=== PATIENT | female | born 1950 | race Caucasian/White ===

== ENCOUNTER → 2024-02-08 07:48 | Outpatient (REF) | payer OTHER, SELFPAY | LOC: RAD 07:48 | PROVIDERS: ATTENDING PHYSICIAN Internal Medicine; OTHER PHYSICIAN Specialist; REFERRING PHYSICIAN Internal Medicine Cardiovascular Disease | DX: R10.11 Right upper quadrant pain (principal) | CPT/HCPCS: 76700 ==

== ENCOUNTER → 2024-05-01 13:51 | Outpatient (REF) | payer OTHER, SELFPAY | LOC: RAD 13:51 | PROVIDERS: ATTENDING PHYSICIAN Nurse Practitioner | DX: M81.0 Age-related osteoporosis without current pathological fracture (principal) | CPT/HCPCS: 77080 ==

== ENCOUNTER 2024-05-10 12:53 | Emergency (ER) | payer OTHER, SELFPAY ==
[2024-05-10 12:54] VITALS: BP 125/55
--- NOTE | 2024-05-10 14:07 | ED.GENMED ---
History of Present Illness
General
Chief Complaint: Head Injury
Source: patient
Exam Limitations: none
Time Seen by Provider: 05/10/24 13:19
Nursing documentation reviewed up to this point in time: agreed with
History of Present Illness
History of Present Illness:
Patient is a 73-year-old female who presents to the ER for evaluation of head injury. Patient points yesterday she was outside grabbed a watering can and hit the top of her head on her garage door. She denies loss of consciousness but today woke
up feeling disoriented and has had a headache and nausea. She no longer feels disoriented but does have mild headache and has felt intermittently nauseous. She is on aspirin but no other blood thinners. Denies any neck pain.
Past History
Past History
ED Past Medical History: GERD, Hypercholesterolemia and Other (Arthritis, asthma, lichen sclerosis)
ED Past Surgical History: Gynecological and Orthopedic
Social History
Tobacco: Former smoker
Alcohol: None
Drug: None
Personal:
Living: with family
Employment: Other
Family History
Family History: Other
Review of Systems
Review of Systems
Allergies reviewed?: Yes
All Other Systems: ROS reviewed and negative except as documented in HPI and ROS
Constitutional: Reports no symptoms; Denies fever, fatigue or chills
Respiratory: Reports no symptoms
Cardiac: Reports no symptoms
ABD/GI: Reports nausea; Denies vomiting
: Reports no symptoms
Musculoskeletal: Reports no symptoms; Denies neck pain
Skin: Reports no symptoms
Neurological: Reports headache
Phy Exam
General Physical Exam
General Presentation: no apparent distress
General age: appears stated age
General Skin: warm and dry
General Habitus: normal
General Mental: alert
General Hydration: appears well hydrated
Cardiovascular Exam
Cardiovascular Exam: regular rate/rhythm, no murmur and normal peripheral pulses
Pulmonary Exam
Pulmonary Exam: lungs clear and no respiratory distress
Neurological Exam
Neurological Exam: alert, oriented x3, no motor deficits and no sensory deficits
[place] Coma Scale
Eye Opening: Spontaneous
Verbal Response: Oriented
Motor Response: Obeys Commands
GCS Total Score: 15
Cerebellar
Cerebellar Function: normal finger to nose
Musculoskeletal Exam
Musculoskeletal Exam: full ROM and other (No obvious hematoma ecchymosis or abrasion to scalp)
Skin Exam
Skin Exam: normal color and warm/dry
Psychiatric Exam
Psychiatric Exam: normal mood/affect
Course
Orders/Labs/Results
Orders:
Orders
05/10/24 14:10
CT Head W/o Iv Contrast Urgent
Comment:
Reason For Exam: trauma
Vital Signs
Initial and Last Documented VS:
Initial Vital Signs
Temp Pulse Resp BP Pulse Ox
97.8 F 69 18 125/55 99
05/10/24 12:54 05/10/24 12:54 05/10/24 12:54 05/10/24 12:54 05/10/24 12:54
Last Documented Vital Signs
Temp Pulse Resp BP Pulse Ox
97.8 F 69 18 125/55 99
05/10/24 12:54 05/10/24 12:54 05/10/24 12:54 05/10/24 12:54 05/10/24 12:54
MDM/Problems Addressed
Differential Diagnosis Includes:
not limited to: head injury concussion
MDM/Problems Addressed:
Patient is a 73-year-old female who hit her head on garage yesterday no loss of consciousness no blood thinners. She does take aspirin. She felt a little disoriented this morning and then throughout the day has intermittent headaches and nausea.
Patient does present however awake alert no acute distress normal neurologic exam.
No obvious injury noted to scalp. CT head negative. Symptoms are consistent with head injury, possible mild concussion.
*Radiology
Radiology exam reviewed: radiology read reviewed
*Pulse Oximetry
Patient hypoxic: no
*Critical Care Note
Total Time (30-74mins, 75-104mins- exclusive of procedures): Not Applicable
ED Attending Note
-
Portions of this chart may have been created with voice recognition software.� Occasional wrong word or��sound alike� substitutions may have occurred due to the inherent limitations of voice recognition software.
Discharge Plan
Departure
Patient Disposition: Home (Routine Discharge)
Date of Disposition: 05/10/24
Time of Disposition: 15:42
Patient with high blood pressure during this ER visit?: No
Covid-19: Not Applicable
Discharge Problem:
Head injury
Instructions: Concussion, Adult (DC), Head Injury in Adults (DC)
Prescriptions:
No Action
montelukast 10 MG tablet
10 mg PO QPM
alprazolam 0.25 MG tablet
0.25 mg PO DAILYPRN PRN (Reason: Flights only per pt)
loratadine 10 MG tablet
10 mg PO DAILYPRN PRN (Reason: allergies)
Rx Instructions:
Spring and Fall
famotidine 40 MG tablet
40 mg PO HS
dexlansoprazole [Dexilant] 30 MG capsule,biphase delayed releas
60 mg PO DAILY
betamethasone valerate 0.1 % Ointment
1 applic TOPICAL BID PRN (Reason: Vaginal)
penciclovir [Denavir] 1 % Cream
1 applic TOPICAL DAILYPRN PRN (Reason: HSV)
albuterol sulfate [ProAir HFA] 90 mcg/actuation Hfa Aerosol Inhaler
2 puff INHALATION Q6H PRN (Reason: SOB)
rosuvastatin 10 mg Tablet
10 mg PO HS
Systane Complete PF 0.6 % Drops
1 drp OPHTHALMIC (EYE) BIDPRN PRN (Reason: dry eye)
lidocaine HCl-menthol 4-1 % Liquid Roll-On
1 ea TOPICAL DAILYPRN PRN (Reason: arthritis)
Qvar RediHaler
50 mcg inhalation BID
Rx Instructions:
seasonally 1-2 puffs BID
zinc (acetate) lozenges
23 mg PO DAILY
aspirin 81 mg Tablet,Delayed Release (Dr/Ec)
81 mg PO DAILY
multivitamin Tablet
1 tab PO DAILY
calcium 100 mg Capsule
400 mg PO DAILY
magnesium 200 mg Tablet
200 mg PO DAILY
acetaminophen 500 mg Capsule
1,000 mg PO Q6H PRN (Reason: pain)
lidocaine [Lidoderm] 5 % adhesive patch,medicated
1 patch topical DAILY Qty: 15 0RF
Activity Restrictions/Additional Instructions:
Tylenol as needed for headaches. Follow-up with your family doctor next several days return if any worsening of symptoms.
Interventions
Interventions:
*Risk Screen - Suicide Last Done: 05/10/24 14:27
*General Assessment Last Done: 05/10/24 14:27
*Neglect/Abuse Screening Last Done: 05/10/24 14:27
*ED COVID-19 Vaccine History Last Done: 05/10/24 12:54
ED- Neurological Assessment Last Done: 05/10/24 14:26
ED-Skin Assessment Last Done: 05/10/24 14:26
Discharge Date and Time
Print Language: WELSH
== END 2024-05-10 15:53 | disposition home or self-care (01) ==
LOC: EMR 12:53
PROVIDERS: EMERGENCY PHYSICIAN Emergency Medicine; FAMILY PHYSICIAN Internal Medicine
DX: S09.90XA Unspecified injury of head, initial encounter (principal); W22.09XA Striking against other stationary object, initial encounter; Z87.891 Personal history of nicotine dependence
CPT/HCPCS: 99284; 70450

== ENCOUNTER → 2024-07-17 13:22 | Outpatient (REF) | payer OTHER, SELFPAY | LOC: RAD 13:22 | PROVIDERS: ATTENDING PHYSICIAN Internal Medicine; REFERRING PHYSICIAN Orthopaedic Surgery | DX: M25.551 Pain in right hip (principal); M25.552 Pain in left hip | CPT/HCPCS: 73522 ==

== ENCOUNTER 2024-09-04 14:02 | Outpatient (RCR) | payer OTHER, SELFPAY | END 2024-09-04 23:59 | disposition home or self-care (01) | LOC: RPT 14:02 | PROVIDERS: ATTENDING PHYSICIAN Orthopaedic Surgery; FAMILY PHYSICIAN Internal Medicine | DX: M16.0 Bilateral primary osteoarthritis of hip (principal); Z73.6 Limitation of activities due to disability | CPT/HCPCS: 97010; 97110; 97112; 97162; 97530 ==

== ENCOUNTER 2024-09-18 14:12 | Outpatient (RCR) | payer OTHER, SELFPAY | END 2024-09-18 23:59 | disposition home or self-care (01) | LOC: RPT 14:12 | PROVIDERS: ATTENDING PHYSICIAN Orthopaedic Surgery; FAMILY PHYSICIAN Internal Medicine | DX: M16.11 Unilateral primary osteoarthritis, right hip (principal); M16.12 Unilateral primary osteoarthritis, left hip; Z73.6 Limitation of activities due to disability | CPT/HCPCS: 97110; 97530 ==

== ENCOUNTER → 2024-11-15 14:09 | Outpatient (REF) | payer OTHER, SELFPAY | LOC: WDC 14:09 | PROVIDERS: ATTENDING PHYSICIAN Obstetrics & Gynecology Gynecology; FAMILY PHYSICIAN Internal Medicine | DX: Z12.31 Encounter for screening mammogram for malignant neoplasm of breast (principal) | CPT/HCPCS: 77063; 77067 ==

== ENCOUNTER 2025-04-16 14:58 | Outpatient (RCR) | payer OTHER, SELFPAY | END 2025-04-16 23:59 | disposition home or self-care (01) | LOC: RPT 14:58 | PROVIDERS: ATTENDING PHYSICIAN Nurse Practitioner | DX: R32 Unspecified urinary incontinence (principal); R39.15 Urgency of urination; M62.89 Other specified disorders of muscle; R10.2 Pelvic and perineal pain; Z73.6 Limitation of activities due to disability | CPT/HCPCS: 97110; 97140; 97163; 97530 ==

== ENCOUNTER 2025-05-02 07:44 | Outpatient (RCR) | payer OTHER, SELFPAY | END 2025-05-02 23:59 | disposition home or self-care (01) | LOC: RPT 07:44 | PROVIDERS: ATTENDING PHYSICIAN Orthopaedic Surgery; FAMILY PHYSICIAN Nurse Practitioner | DX: M76.891 Other specified enthesopathies of right lower limb, excluding foot (principal); Z73.6 Limitation of activities due to disability | CPT/HCPCS: 97010; 97110; 97162 ==

== ENCOUNTER 2025-06-01 09:58 | Outpatient (RCR) | payer OTHER, SELFPAY | END 2025-06-01 23:59 | disposition home or self-care (01) | LOC: RPT 09:58 | PROVIDERS: ATTENDING PHYSICIAN Orthopaedic Surgery; FAMILY PHYSICIAN Nurse Practitioner | DX: M76.891 Other specified enthesopathies of right lower limb, excluding foot (principal); Z73.6 Limitation of activities due to disability; M25.561 Pain in right knee; M25.551 Pain in right hip | CPT/HCPCS: 97010; 97110; 97112; 97140 ==

== ENCOUNTER 2025-06-06 11:41 | Outpatient (RCR) | payer OTHER, SELFPAY | END 2025-06-06 23:59 | disposition home or self-care (01) | LOC: RPT 11:41 | PROVIDERS: ATTENDING PHYSICIAN Nurse Practitioner | DX: R32 Unspecified urinary incontinence (principal); R39.15 Urgency of urination; Z73.6 Limitation of activities due to disability; M62.89 Other specified disorders of muscle; R10.2 Pelvic and perineal pain | CPT/HCPCS: 97014; 97110; 97140; 97530 ==

== ENCOUNTER 2025-06-20 10:46 | Outpatient (RCR) | payer OTHER, SELFPAY | END 2025-06-20 23:59 | disposition home or self-care (01) | LOC: RPT 10:46 | PROVIDERS: ATTENDING PHYSICIAN Nurse Practitioner | DX: R32 Unspecified urinary incontinence (principal); R39.15 Urgency of urination; Z73.6 Limitation of activities due to disability; M62.89 Other specified disorders of muscle; R10.2 Pelvic and perineal pain | CPT/HCPCS: 97140; 97530 ==

== ENCOUNTER 2025-06-29 10:14 | Outpatient (RCR) | payer OTHER, SELFPAY | END 2025-06-29 23:59 | disposition home or self-care (01) | LOC: RPT 10:14 | PROVIDERS: ATTENDING PHYSICIAN Orthopaedic Surgery; FAMILY PHYSICIAN Nurse Practitioner | DX: M76.891 Other specified enthesopathies of right lower limb, excluding foot (principal); Z73.6 Limitation of activities due to disability; M25.561 Pain in right knee | CPT/HCPCS: 97110; 97112 ==

== ENCOUNTER 2025-07-17 10:19 | Outpatient (RCR) | payer OTHER, SELFPAY | END 2025-07-17 23:59 | disposition home or self-care (01) | LOC: RPT 10:19 | PROVIDERS: ATTENDING PHYSICIAN Nurse Practitioner | DX: R32 Unspecified urinary incontinence (principal); R39.15 Urgency of urination; Z73.6 Limitation of activities due to disability; M62.89 Other specified disorders of muscle; R10.2 Pelvic and perineal pain | CPT/HCPCS: 97530 ==

== ENCOUNTER → 2025-07-31 15:31 | Outpatient (REF) | payer OTHER, SELFPAY | LOC: RAD 15:31 | PROVIDERS: ATTENDING PHYSICIAN Internal Medicine Rheumatology; FAMILY PHYSICIAN Internal Medicine | DX: M06.4 Inflammatory polyarthropathy (principal); M81.0 Age-related osteoporosis without current pathological fracture; Z87.311 Personal history of (healed) other pathological fracture | CPT/HCPCS: 73523; 73552 ==

== ENCOUNTER 2025-08-20 10:05 | Outpatient (RCR) | payer OTHER, SELFPAY | END 2025-08-20 23:59 | disposition home or self-care (01) | LOC: RPT 10:05 | PROVIDERS: ATTENDING PHYSICIAN Nurse Practitioner | DX: R32 Unspecified urinary incontinence (principal); R39.15 Urgency of urination; Z73.6 Limitation of activities due to disability; M62.89 Other specified disorders of muscle; R10.20 Pelvic and perineal pain unspecified side; R10.2 Pelvic and perineal pain | CPT/HCPCS: 97530 ==

== ENCOUNTER 2025-08-22 07:39 | Outpatient (RCR) | payer OTHER, SELFPAY | END 2025-08-22 23:59 | disposition home or self-care (01) | LOC: RPT 07:39 | PROVIDERS: ATTENDING PHYSICIAN Orthopaedic Surgery; FAMILY PHYSICIAN Nurse Practitioner | DX: M76.891 Other specified enthesopathies of right lower limb, excluding foot (principal); Z73.6 Limitation of activities due to disability; M25.561 Pain in right knee; M16.0 Bilateral primary osteoarthritis of hip; S76.311D Strain of muscle, fascia and tendon of the posterior muscle group at thigh level, right thigh, subsequent encounter | CPT/HCPCS: 97110; 97140; 97164 ==

== ENCOUNTER → 2025-08-30 13:57 | Outpatient (REF) | payer OTHER, SELFPAY | LOC: EMG 13:57 | PROVIDERS: ATTENDING PHYSICIAN Internal Medicine | DX: M79.2 Neuralgia and neuritis, unspecified (principal); R20.0 Anesthesia of skin | CPT/HCPCS: 95886; 95912 ==

== ENCOUNTER 2025-10-02 10:51 | Outpatient (RCR) | payer OTHER, SELFPAY | END 2025-10-02 23:59 | disposition home or self-care (01) | LOC: RPT 10:51 | PROVIDERS: ATTENDING PHYSICIAN Nurse Practitioner | DX: R32 Unspecified urinary incontinence (principal); R39.15 Urgency of urination; Z73.6 Limitation of activities due to disability; M62.89 Other specified disorders of muscle; R10.2 Pelvic and perineal pain; R10.20 Pelvic and perineal pain unspecified side | CPT/HCPCS: 97140; 97530 ==

== ENCOUNTER 2025-11-07 13:09 | Emergency (ER) | payer OTHER, SELFPAY ==
[2025-11-07 13:28] LABS: Hematocrit 38.5 % (37.0-47.0); Hemoglobin 12.4 g/dL (12.0-16.0); Mean Corp Hgb Conc. 32.2 g/dL (33.0-37.0); Mean Corpuscular Volume 90.2 fL (81.0-99.0); Nucleated Red Blood Cells % 0 %; Platelet Count 171 10^3/uL (130-400); Red Cell Dist. Width 14.3 % (11.5-14.5)
[2025-11-07 13:38] LABS: ALT (SGPT) 22 U/L (0-35); AST (SGOT) 28 U/L (14-36); Albumin 4.4 g/dl (3.5-5.0); Alkaline Phosphatase 71 U/L (38-126); Blood Urea Nitrogen 21 mg/dl (7-17); Calcium 9.8 mg/dl (8.4-10.2); Carbon Dioxide 26 mmol/L (22-30); Chloride 105 mmol/L (98-107); Glucose 106 mg/dl (70-99); Potassium 4.4 mmol/L (3.5-5.1); Sodium 136 mmol/L (135-145); Total Protein 7.0 g/dl (6.3-8.2); eGFR > 60.00
[2025-11-07 13:49] LABS: Troponin I < 0.012 ng/ml
--- NOTE | 2025-11-07 19:23 | ED.GENMED ---
History of Present Illness
General
Chief Complaint: Chest Pain
Source: patient
Exam Limitations: none
Time Seen by Provider: 11/07/25 18:59
Nursing documentation reviewed up to this point in time: agreed with
History of Present Illness
History of Present Illness:
75-year-old female with past medical history of hypertension hyperlipidemia, heart disease presenting to the emergency department today with concerns of an episode of shortness of breath chest pain lasting about 45 minutes this morning after taking
a shower. Also radiated to the jaw. Did take a baby aspirin this morning she does take this typically in the morning. Does have a history of reflux but claims this feels slightly worse than that. Symptoms seem to improve was very minimal for
period time at home and is now fully resolved. Denies any smoking or drinking history. Denies any recent trauma surgery immobilization, leg swelling. No history of blood clots.
Past History
Past History
ED Past Medical History: GERD, Hypercholesterolemia and Other (Arthritis, asthma, lichen sclerosis)
ED Past Surgical History: Gynecological and Orthopedic
Social History
Tobacco: Former smoker
Alcohol: None
Drug: None
Personal:
Living: with family
Employment: Other
Family History
Family History: Other
Review of Systems
Review of Systems
Allergies reviewed?: Yes
All Other Systems: ROS reviewed and negative except as documented in HPI and ROS
Phy Exam
Physical Exam
Physical Exam:
GENERAL: Alert , in no apparent distress
EYE: pupils equal and reactive
NECK: Supple, no significant adenopathy.
ENT: o/p clr, mmm.
CARDIAC: Regular rate and rhythm .
LUNGS: Clear breath sounds bilaterally, no acute respiratory distress, no wheezes/rales/rhonchi
ABDOMEN: Soft, without focal tenderness, no r/g, no cvat
NEUROLOGICAL: Alert and oriented, no focal neuro deficits
SKIN: Warm and dry, skin intact.
MUSCULOSKELETAL: No edema, well perfused.
PSYCH: Normal and appropriate interaction.
Scores
Heart Score for Chest Pain Patients
STEMI patient?: No
History: Slightly or Non-Suspicious
ECG: Nonspecific Repolarization
Age: >/= 65 years
Risk Factors: >/= 3 Risk Factors or History of CAD
Troponin: </= Normal Limit
Heart Score for Chest Pain Patients: 5
Heart Score Risk: 20.3% MACE over next 6 weeks
Course
Orders/Labs/Results
Orders:
Orders
11/07/25 13:10
Electrocardiogram (*1) Urgent
Reason for Study: Chest Pain
EKG- Treatment ONCE
11/07/25 13:19
Complete Blood Count/With Diff Urgent
Comprehensive Metabolic Panel Urgent
Troponin I Urgent
11/07/25 19:19
Electrocardiogram (*1) Urgent
Reason for Study: Chest Pain
EKG- Treatment ONCE
Chest [CR Chest - 2 Views ] Urgent
Comment:
Reason For Exam: cp
11/07/25 19:50
Troponin I Urgent
11/07/25 20:11
Vital Signs- Treatment ONCE
Frequency: Once
Comment: Blood pressure
Abnormal Lab Results
11/07/25
13:19
MCHC 32.2 L g/dL
(33.0-37.0)
MPV 12.1 H fL
(7.4-10.4)
Absolute Neuts (auto) 8.4 H 10^3/uL
(1.4-6.5)
Absolute Lymphs (auto) 0.8 L 10^3/uL
(1.2-3.4)
Neutrophils % 87.9 H %
(42.2-75.2)
Lymphocytes % 8.2 L %
(20.5-51.1)
BUN 21 H mg/dl
(7-17)
Glucose 106 H mg/dl
(70-99)
11/07/25 13:19
11/07/25 13:19
Vital Signs
Initial and Last Documented VS:
Initial Vital Signs
Temp Pulse Resp Pulse Ox
97.8 F 84 18 99
11/07/25 13:23 11/07/25 13:23 11/07/25 13:23 11/07/25 13:23
Last Documented Vital Signs
Temp Pulse Resp BP Pulse Ox
98.5 F 84 18 133/69 95
11/07/25 13:26 11/07/25 13:23 11/07/25 13:23 11/07/25 20:20 11/07/25 20:30
MDM/Problems Addressed
MDM/Problems Addressed:
75-year-old female presenting to the emergency department today with concerns of chest pain shortness of breath roughly 4 hours prior to arrival to the emergency department. Very minimal at time of arrival and now asymptomatic. Initial EKG without
signs of ischemia or arrhythmia. Troponin negative labs unremarkable. Repeated troponin and EKG without acute abnormalities. Patient stable for discharge at this time return precautions given.
*Pulse Oximetry
SaO2: 99
Patient hypoxic: no (95)
*Critical Care Note
Total Time (30-74mins, 75-104mins- exclusive of procedures): Not Applicable
ED Attending Note
-
Portions of this chart may have been created with voice recognition software.� Occasional wrong word or��sound alike� substitutions may have occurred due to the inherent limitations of voice recognition software.
Discharge Plan
Departure
Patient Disposition: Home (Routine Discharge)
Date of Disposition: 11/07/25
Time of Disposition: 20:37
Patient with high blood pressure during this ER visit?: No
Condition: Good
Covid-19: Not Applicable
Discharge Problem:
Chest pain
Instructions: Chest Pain CBC Follow Up
Prescriptions:
No Action
montelukast 10 MG tablet
10 mg PO QPM
alprazolam 0.25 MG tablet
0.25 mg PO DAILYPRN PRN (Reason: Flights only per pt)
loratadine 10 MG tablet
10 mg PO DAILYPRN PRN (Reason: allergies)
Rx Instructions:
Spring and Fall
famotidine 40 MG tablet
40 mg PO HS
dexlansoprazole [Dexilant] 30 MG capsule,biphase delayed releas
60 mg PO DAILY
betamethasone valerate 0.1 % Ointment
1 applic TOPICAL BID PRN (Reason: Vaginal)
penciclovir [Denavir] 1 % Cream
1 applic TOPICAL DAILYPRN PRN (Reason: HSV)
albuterol sulfate [ProAir HFA] 90 mcg/actuation Hfa Aerosol Inhaler
2 puff INHALATION Q6H PRN (Reason: SOB)
rosuvastatin 10 mg Tablet
10 mg PO HS
Systane Complete PF 0.6 % Drops
1 drp OPHTHALMIC (EYE) BIDPRN PRN (Reason: dry eye)
lidocaine HCl-menthol 4-1 % Liquid Roll-On
1 ea TOPICAL DAILYPRN PRN (Reason: arthritis)
Qvar RediHaler
50 mcg inhalation BID
Rx Instructions:
seasonally 1-2 puffs BID
zinc (acetate) lozenges
23 mg PO DAILY
aspirin 81 mg Tablet,Delayed Release (Dr/Ec)
81 mg PO DAILY
multivitamin Tablet
1 tab PO DAILY
calcium 100 mg Capsule
400 mg PO DAILY
magnesium 200 mg Tablet
200 mg PO DAILY
acetaminophen 500 mg Capsule
1,000 mg PO Q6H PRN (Reason: pain)
lidocaine [Lidoderm] 5 % adhesive patch,medicated
1 patch topical DAILY Qty: 15 0RF
Referrals:
Audra Starks CRNP [Family Provider, Internal Medicine]
Activity Restrictions/Additional Instructions:
You came to the emergency department today with concerns of chest discomfort.. A reassuring assessment. Please follow closely with cardiology. Return for any worsening, new or concerning symptoms.
Interventions
Interventions:
*General Assessment Last Done: 11/07/25 19:51
*Neglect/Abuse Screening Last Done: 11/07/25 19:51
*ED COVID-19 Vaccine History Last Done: 11/07/25 19:51
*ED Influenza Vaccine History Last Done: 11/07/25 19:51
[facility] Fall Risk Assessment Tool Last Done: 11/07/25 19:51
*Risk Screen - Suicide (C-SSRS) Last Done: 11/07/25 19:51
ED- Cardiac Assessment Last Done: 11/07/25 19:51
Discharge Date and Time
Print Language: PAKIST[place]
[2025-11-07 20:20] VITALS: BP 133/69
[2025-11-07 20:22] LABS: Troponin I < 0.012 ng/ml
== END 2025-11-07 20:41 | disposition home or self-care (01) ==
LOC: EMR 13:09
PROVIDERS: Physician Assistant; EMERGENCY PHYSICIAN Emergency Medicine; FAMILY PHYSICIAN Nurse Practitioner
DX: R07.9 Chest pain, unspecified (principal); I10 Essential (primary) hypertension; E78.00 Pure hypercholesterolemia, unspecified; J45.909 Unspecified asthma, uncomplicated; K21.9 Gastro-esophageal reflux disease without esophagitis; L90.0 Lichen sclerosus et atrophicus; M19.90 Unspecified osteoarthritis, unspecified site; Z79.82 Long term (current) use of aspirin; Z87.891 Personal history of nicotine dependence
CPT/HCPCS: 99284; 71046; 80053; 84484; 85025; 93005